=== PATIENT | male | born 1990 | race Caucasian/White ===

== ENCOUNTER 2017-02-12 12:42 | Emergency (ER) | payer SELFPAY ==
[~2017-02-12] VITALS: Ht 167.6 cm; Wt 58.0 kg
[~2017-02-12 12:42] MED LIST: LORTA5 PO; Z.0.NO CURRENT MEDS
[2017-02-12 12:45] VITALS: BP 114/65; PULSE 80; RESP 16; TEMP 98.1; O2SAT 98
[2017-02-12 13:33] LABS: AUTOMATED NEUTROPHIL # 4.8 TH/MM3 (1.8-7.7); BASOPHIL % 0.4 % (0.0-2.0); EOSINOPHIL # 0.1 TH/MM3 (0-0.4); EOSINOPHIL % 1.2 % (0.0-4.0); HEMATOCRIT 48.3 % (39.0-51.0); HEMO FLAGS DIFF FINAL; LYMPH % 19.5 % (9.0-44.0); LYMPHOCYTE # 1.3 TH/MM3 (1.0-4.8); MEAN CELL VOLUME 93.3 FL (80.0-100.0); MEAN CORPUSCULAR HEMOGLOBIN 31.5 PG (27.0-34.0); MEAN CORPUSCULAR HGB CONC 33.7 % (32.0-36.0); MONO % 5.9 % (0.0-8.0); PLATELET COUNT 158 TH/MM3 (150-450); RED BLOOD COUNT 5.17 MIL/MM3 (4.50-5.90); WHITE BLOOD COUNT 6.5 TH/MM3 (4.0-11.0)
[2017-02-12 13:50] LABS: ANION GAP 7 MEQ/L (5-15); AST (GOT) 9 U/L (15-37); BICARBONATE 25.2 MEQ/L (21.0-32.0); BLOOD UREA NITROGEN 7 MG/DL (7-18); CHLORIDE 109 MEQ/L (98-107); GLOMERULAR FILTRATION RATE 110 ML/MIN (>89); SODIUM (NA) 141 MEQ/L (136-145)
[2017-02-12 13:52] LABS: ALKALINE PHOSPHATASE 82 U/L (45-117); ALT (GPT) 14 U/L (12-78); TOTAL BILIRUBIN ADULT 0.5 MG/DL (0.2-1.0)
--- NOTE | 2017-02-12 13:53 | PD ---
HPI Chief Complaint: Psychiatric Symptoms Time Seen by Provider: 13:47 Travel History International Travel<30 days: No Contact w/Intl Traveler<30days: No Traveled to known affect area: No History of Present Illness HPI The patient is a 26-year-old male who presents to the emergency department via police as a Coyne act. According to the police affidavit the patient was in a car earlier today with his mother when they engaged in a verbal argument. The patient made several statements in regards to possibly harming himself and the mother subsequently drove to the police station where he was placed under a Coyne act. The patient states that he is under great deal of stress secondary to financial issues, is currently living on the couch at his sister's place of residence. 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 However, the patient denies any actual suicidal ideation or homicidal ideation. He denies any history of previous diagnosed psychiatric disorders including bipolar affective disorder, schizophrenia, depression, or anxiety. He does admit to using marijuana occasionally. He denies any chronic alcohol abuse. He denies any associated hallucinations or delusions. FORMERLY [facility], [facility] Past Medical History Medical History: Denies Significant Hx Diminished Hearing: No Past Surgical History Surgical History: No Previous Surgery Social History Alcohol Use: Yes (SOCIAL) Tobacco Use: Yes (1PPD) Substance Use: Yes (MARIJUANA) Allergies-Medications (Allergen,Severity, Reaction): Coded Allergies: No Known Allergies (Verified , 02/12/17) Reported Meds & Prescriptions Reported Meds & Active Scripts Active No Active Prescriptions or Reported Medications Review of Systems Except as stated in HPI: all other systems reviewed are Neg General / Constitutional: No: Fever Cardiovascular: No: Chest Pain or Discomfort Respiratory: No: Shortness of Breath Gastrointestinal: No: Nausea, Vomiting, Abdominal Pain Psychiatric: Positive: Depression (over recent financial issues, no formal diagnosis of depression), Substance Abuse (uses marijuana occasionally), No: Suicidal Ideations, Homicidal Ideation Physical Exam Narrative GENERAL: Awake, alert, pleasant 26-year-old male who appears his stated age and is in no acute respiratory distress. SKIN: Focused skin assessment warm/dry. Multiple tattoos noted. HEAD: Atraumatic. Normocephalic. EYES: Pupils equal and round. No scleral icterus. No injection or drainage. ENT: No nasal bleeding or discharge. Poor dentition. NECK: Trachea midline. No JVD. CARDIOVASCULAR: Regular rate and rhythm. No murmur appreciated. RESPIRATORY: No accessory muscle use. Clear to auscultation. Breath sounds equal bilaterally. GASTROINTESTINAL: Abdomen soft, non-tender, nondistended. MUSCULOSKELETAL: No obvious deformities. No clubbing. No cyanosis. No edema. NEUROLOGICAL: Awake and alert. No obvious cranial nerve deficits. Motor grossly within normal limits. Normal speech. Nonfocal. Oriented 4. Follows commands without difficulty. PSYCHIATRIC: Appropriate mood and affect; insight and judgment normal. Data Data Last Documented VS Vital Signs Date Time Temp Pulse Resp B/P (MAP) Pulse Ox O2 Delivery O2 Flow Rate FiO2 02/12/17 12:45 98.1 80 16 114/65 (81) 98 Orders Orders Complete Blood Count With Diff (02/12/17 12:45) Comprehensive Metabolic Panel (02/12/17 12:45) Psych Screen (02/12/17 12:45) Ob/Psych Drug Screen, Urine (02/12/17 13:08) Salicylates (Aspirin) (02/12/17 13:08) Ur Bath Salts (02/12/17 13:30) Ur Heroin (02/12/17 13:30) Ur K2 Spice (02/12/17 13:30) Ur Ecstasy (02/12/17 13:30) Phencyclidine Urine (Pcp) (02/12/17 13:30) Labs Laboratory Tests Test 02/12/17 13:10 02/12/17 13:30 White Blood Count 6.5 TH/MM3 Red Blood Count 5.17 MIL/MM3 Hemoglobin 16.3 GM/DL Hematocrit 48.3 % Mean Corpuscular Volume 93.3 FL Mean Corpuscular Hemoglobin 31.5 PG Mean Corpuscular Hemoglobin Concent 33.7 % Red Cell Distribution Width 13.0 % Platelet Count 158 TH/MM3 Mean Platelet Volume 8.7 FL Neutrophils (%) (Auto) 73.0 % Lymphocytes (%) (Auto) 19.5 % Monocytes (%) (Auto) 5.9 % Eosinophils (%) (Auto) 1.2 % Basophils (%) (Auto) 0.4 % Neutrophils # (Auto) 4.8 TH/MM3 Lymphocytes # (Auto) 1.3 TH/MM3 Monocytes # (Auto) 0.4 TH/MM3 Eosinophils # (Auto) 0.1 TH/MM3 Basophils # (Auto) 0.0 TH/MM3 CBC Comment DIFF FINAL Differential Comment Blood Urea Nitrogen 7 MG/DL Creatinine 0.85 MG/DL Random Glucose 94 MG/DL Total Protein 7.8 GM/DL Albumin 4.3 GM/DL Calcium Level 9.4 MG/DL Alkaline Phosphatase 82 U/L Aspartate Amino Transf (AST/SGOT) 9 U/L Alanine Aminotransferase (ALT/SGPT) 14 U/L Total Bilirubin 0.5 MG/DL Sodium Level 141 MEQ/L Potassium Level 4.0 MEQ/L Chloride Level 109 MEQ/L Carbon Dioxide Level 25.2 MEQ/L Anion Gap 7 MEQ/L Estimat Glomerular Filtration Rate 110 ML/MIN Salicylates Level 4.9 MG/DL Urine Opiates Screen NEG Urine Barbiturates Screen NEG Urine Amphetamines Screen NEG Urine Benzodiazepines Screen NEG Urine Cocaine Screen NEG Urine Cannabinoids Screen POS MDM Medical Decision Making Medical Screen Exam Complete: Yes Emergency Medical Condition: Yes Medical Record Reviewed: Yes Interpretation(s) Laboratory Tests Test 02/12/17 13:10 02/12/17 13:30 White Blood Count 6.5 TH/MM3 Red Blood Count 5.17 MIL/MM3 Hemoglobin 16.3 GM/DL Hematocrit 48.3 % Mean Corpuscular Volume 93.3 FL Mean Corpuscular Hemoglobin 31.5 PG Mean Corpuscular Hemoglobin Concent 33.7 % Red Cell Distribution Width 13.0 % Platelet Count 158 TH/MM3 Mean Platelet Volume 8.7 FL Neutrophils (%) (Auto) 73.0 % Lymphocytes (%) (Auto) 19.5 % Monocytes (%) (Auto) 5.9 % Eosinophils (%) (Auto) 1.2 % Basophils (%) (Auto) 0.4 % Neutrophils # (Auto) 4.8 TH/MM3 Lymphocytes # (Auto) 1.3 TH/MM3 Monocytes # (Auto) 0.4 TH/MM3 Eosinophils # (Auto) 0.1 TH/MM3 Basophils # (Auto) 0.0 TH/MM3 CBC Comment DIFF FINAL Differential Comment Blood Urea Nitrogen 7 MG/DL Creatinine 0.85 MG/DL Random Glucose 94 MG/DL Total Protein 7.8 GM/DL Albumin 4.3 GM/DL Calcium Level 9.4 MG/DL Alkaline Phosphatase 82 U/L Aspartate Amino Transf (AST/SGOT) 9 U/L Alanine Aminotransferase (ALT/SGPT) 14 U/L Total Bilirubin 0.5 MG/DL Sodium Level 141 MEQ/L Potassium Level 4.0 MEQ/L Chloride Level 109 MEQ/L Carbon Dioxide Level 25.2 MEQ/L Anion Gap 7 MEQ/L Estimat Glomerular Filtration Rate 110 ML/MIN Salicylates Level 4.9 MG/DL Urine Opiates Screen NEG Urine Barbiturates Screen NEG Urine Amphetamines Screen NEG Urine Benzodiazepines Screen NEG Urine Cocaine Screen NEG Urine Cannabinoids Screen POS Differential Diagnosis Differential diagnosis includes adjustment reaction, stress reaction, depressive disorder NOS, bipolar affective disorder, substance induced mood disorder, suicidal ideation. Narrative Course Labs were drawn and sent. Psychiatric evaluation was ordered. Labs are unremarkable. The patient was medically cleared to be evaluated by psychiatry. Disposition as per psych. Diagnosis Primary Impression: Stress reaction causing mixed disturbance of emotion and conduct Scripts No Active Prescriptions or Reported Meds Condition: Stable Elias Matute MD Feb 12, 2017 13:53
[2017-02-12 19:54] VITALS: BP 127/73; PULSE 76; RESP 18; TEMP 98.4; O2SAT 99
[2017-02-12 23:08] VITALS: BP 109/50; PULSE 50; RESP 18
[2017-02-13 02:42] VITALS: BP 112/59; PULSE 74; RESP 20
[2017-02-17 11:46] LABS: PHENCYCLIDINE URINE NEG (NEG)
[2017-02-17 11:47] LABS: BATH SALTS (MDPV) UR NEG (NEG); ECSTASY (MDMA) UR NEG (NEG); HEROIN (6-ACETYLMORPHINE) UR NEG (NEG); K2 SPICE UR NEG (NEG); OBMETHADONE UR NEG (NEG)
[2017-02-17 11:50] LABS: GABAPENTIN UR NEG (NEG); HYDROMORPHONE U NEG (NEG)
== END 2017-02-13 03:58 ==
LOC: NEDAMB 12:42 → NEPJ 02-13 03:58
DX: F43.8 Other reactions to severe stress (principal); F12.90 Cannabis use, unspecified, uncomplicated; F17.200 Nicotine dependence, unspecified, uncomplicated
CPT/HCPCS: 80053; 80307; 85025; 99284; G0481